=== PATIENT | female | born 1960 | race Caucasian/White ===

== ENCOUNTER 2017-02-09 18:13 | Emergency (ER) | payer OTHER ==
--- OUTSIDE RECORDS SUMMARY | 2017-02-09 18:33 | XMS REPORT | Continuity of Care Document ---
:1960 Author Organization [facility] ([facility]) Address [address] [place] [address] Phone [phone] Care Team Providers Name Role Phone Km Escudero Primary Care Provider [phone] Source Comments This disclosure is being made pursuant to the Care Everywhere program, applicable federal and state laws, and may not contain all informaitonavailable regarding this patient.[facility] ([facility]) Active Allergies and Adverse Reactions No Active Allergies Current Medications Not on file Active Problems Not on file Social History Tobacco Use Types Packs/Day Years Used Date Never Assessed Last Filed Vital Signs Vital Sign Reading Time Taken Blood Pressure - - Pulse - - Temperature - - Respiratory Rate - - Height 1.6 m (5' 2.99") 06/20/2005 8:22 AM CDT Weight 61.798 kg (136 lb 3.8 oz) 06/20/2005 8:22 AM CDT Body Mass Index 24.14 06/20/2005 8:22 AM CDT Oxygen Saturation - - Plan of Care Health Maintenance Due Date Last Done Comments HCV Screening 1960 Hepatitis B Vaccine (1 of 3 - Primary Series) 1960 Tdap Vaccine 1969 Lipid Disorder Screening 1976 MMR Vaccine 1976 Td Vaccine 1976 Cervical Cancer Screening 1988 Mammogram 1998 Colonoscopy 11/20/2008 Influenza Vaccine: Seasonal (#1) 06/04/2016 Results from Last 3 Months Not on file
[2017-02-09] MEDS ORDERED: HYDROcodone/ACETAMINOPHEN 1 EACH TABLET PO ONE ×2 (18:34→19:11)
[2017-02-09] MEDS ORDERED: KETOROLAC TROMETHAMINE 60 MG/2 ML VIAL IM ONE ×2 (18:34→18:37)
[2017-02-09] MEDS ORDERED: HYDROcodone/ACETAMINOPHEN 1 EACH TABLET ONE ×2 (18:37→19:24)
--- NOTE | 2017-02-09 19:09 | ERNOTE ---
Trauma/Assault HPI - Narrative Date of Service: 02/09/17 - General Stated Complaint: FALL DOWNSTAIRS Time Seen by Provider: 02/09/17 18:29 Source: patient, family Exam Limitations: no limitations - Immun/Allergies/Home Medications Immunizations: IMMUNIZATION HX Immunizations Up to Date No History of Influenza Vaccine No Hx Pneumococcal Vaccination Yes Allergies/Adverse Reactions: Allergies No Known Allergies Allergy (Verified 05/27/13 14:16) Home Medications: HOME MEDICATIONS Calcium Carb/Vitamin D3/Vit K1 [Calcium + D Soft Chewable Tab] 1 each PO QID 06/20 [Last Taken Unknown] Magnesium 200 mg PO DAILY 02/09/17 [Last Taken Unknown] Multivitamin [One Daily Essential] 1 each PO DAILY 02/09/17 [Last Taken Unknown] Nortriptyline HCl 10 mg PO HS 02/09/17 [Last Taken Unknown] Sulindac 200 mg PO BID 02/09/17 [Last Taken Unknown] Venlafaxine HCl [Effexor] 75 mg PO BID 02/09/17 [Last Taken Unknown] - History of Present Illness Narrative: Present to the [facility] ER today after a fall at home about 1400 hour. She was working outside, and slipped on some cellar steps. She fell down two steps, thereby twisting her right ankle and twisting his low back. Back pain is worse than the ankle pain. Location Occurred: Reports: home Pain Location: Reports: lower extremity, other - low back, right side Method of Injury: Reports: other - slipped and fell Severity: moderate Modifying Factors - (Improves): Reports: rest Modifying Factors - (Worsens): Reports: jarring, movement Loss of Consciousness: Reports: no loss of consciousness Associated Symptoms - Trauma: Reports: denies symptoms Review of Systems - Review of Systems Constitutional: Present: no symptoms reported EYE: Present: no symptoms reported ENT: Present: no symptoms reported Respiratory: Present: no symptoms reported Cardiology: Present: no symptoms reported Gastrointestinal/Abdominal: Present: no symptoms reported Genitourinary: Present: no symptoms reported Musculoskeletal: Present: See HPI Skin: Present: no symptoms reported Neurological: Present: no symptoms reported Endocrine: Present: no symptoms reported Hematologic/Lymphatic: Present: no symptoms reported Psych: Present: no symptoms reported All Other Systems: All systems neg except as marked - Patient's Past Medical History Patient History - Medical: Fibromyalgia Patient History - Cardiac/Respiratory: Sleep Apnea Patient History - Cancer: Skin Patient History - Surgical Procedures: T & A, Other Patient History - Other: None - Social History Living Situations: home Psych History: No pertinent hx Smoking Status: Current some day smoker Patient requests Smoking Cessation Consult: No Initiate information on Smoking Cessation: No Alcohol Use: none Drug Use: none - Immunizations Immunizations Up to Date: No Hx Pneumococcal Vaccination: Yes History of Influenza Vaccine: No Physical Exam - Physical Exam General Appearance: Present: wd/wn, alert, no apparent distress Eye Exam: Normal inspection: bilateral, PERRL: bilateral, EOMI: bilateral Ears, Nose, Throat: Present: normal ENT inspection Neck: Present: normal inspection, nontender Respiratory: Present: no respiratory distress, normal breath sounds Cardiovascular/Chest: Present: regular rate, rhythm, no murmur Gastrointestinal/Abdominal: Present: normal bowel sounds, nontender, nondistended, soft, no organomegaly Back Exam: Present: muscle spasm - right paralumbar mucscles, which are also quite tender. Absent: no CVA tenderness, no vertebral tenderness Extremity Exam: Present: normal except - - lateral right ankle tender. one lateral ligament plus the fibula are tender. Neurological Exam: Present: alert, oriented, normal mood/affect, no motor/ sensory deficits Skin Exam: Present: normal color, warm/dry ED Progress - Vital Signs Patient's Vital Signs:: I have reviewed the patient's vital signs. Vital Signs: Vital Signs 02/09/17 18:15 Temperature 37.2 C Pulse Rate 72 Respiratory 16 Rate Blood Pressure 142/65 O2 Sat by Pulse 97 Oximetry - X-Ray X-Ray #1 X-Ray: ankle Interpretation: Interp. by me - comminuted fx distal tip of fibula, right ankle. - Progress/Reassessment Chief Complaint: Fall Progress:: Improved Departure Clinical Impression: Right ankle sprain Qualifiers: Encounter type: initial encounter Involved ligament of ankle: unspecified ligament Qualified Code(s): S93.401A - Sprain of unspecified ligament of right ankle, initial encounter Fracture, fibula Qualifiers: Encounter type: initial encounter Fibula location: distal Fracture type: closed Fracture morphology: unspecified fracture morphology Laterality: right Qualified Code(s): S82.831A - Other fracture of upper and lower end of right fibula, initial encounter for closed fracture Low back strain Qualifiers: Encounter type: initial encounter Qualified Code(s): S39.012A - Strain of muscle, fascia and tendon of lower back, initial encounter - Departure Disposition: Home self-care Condition: Good Instructions: Ankle Sprain, Undisplaced Fibular Ankle Fracture Treated With Immobilization, Adult, Low Back Sprain With Rehab-SportsMed, RICE for Routine Care of Injuries, [id number] Additional Instructions: Followup in the office in 1-2 weeks. Referrals: Anderson Jaimes MD [Primary Care Provider] -
[2017-02-09 19:44] VITALS: BP 133/56
== END 2017-02-09 19:38 | disposition home or self-care (01) ==
LOC: ER 18:13
PROC: 2W3SX1Z Immobilization of Right Foot using Splint (ICD-10-PCS; principal; 2017-02-09)
DX: S93.401A Sprain of unspecified ligament of right ankle, initial encounter (principal); S82.831A Other fracture of upper and lower end of right fibula, initial encounter for closed fracture; S39.012A Strain of muscle, fascia and tendon of lower back, initial encounter; Z72.0 Tobacco use; Z85.828 Personal history of other malignant neoplasm of skin; W10.2XXA Fall (on)(from) incline, initial encounter; Y93.9 Activity, unspecified; Y92.007 Garden or yard of unspecified non-institutional (private) residence as the place of occurrence of the external cause; M79.7 Fibromyalgia

== ENCOUNTER 2017-03-02 21:01 | Emergency (ER) | payer OTHER ==
[2017-03-02] MEDS ORDERED: ONDANSETRON HCL/PF 2 MG/ML VIAL IV ONE (23:14)
[2017-03-02] MEDS ORDERED: TAMSULOSIN HCL 0.4 MG CAP.SR.24H PO ONE ×2 (23:14→23:19)
[2017-03-02] MEDS ORDERED: KETOROLAC TROMETHAMINE 30 MG/ML VIAL IV ONE (23:14)
[2017-03-02] MEDS ORDERED: ONDANSETRON HCL/PF 2 MG/ML VIAL ONE (23:17)
[2017-03-02] MEDS ORDERED: KETOROLAC TROMETHAMINE 30 MG/ML VIAL ONE (23:17)
--- NOTE | 2017-03-02 23:18 | ERNOTE ---
Back Pain ER HPI Date of Service: 03/02/17 Presenting Symptoms: injury/pain to back Time Seen by Provider: 03/02/17 23:04 Source: patient Exam Limitations: no limitations Immunizations: IMMUNIZATION HX Immunizations Up to Date Yes History of Influenza Vaccine No Hx Pneumococcal Vaccination Yes Allergies/Adverse Reactions: Allergies No Known Allergies Allergy (Verified 05/27/13 14:16) Home Medications: HOME MEDICATIONS Calcium Carb/Vitamin D3/Vit K1 [Calcium + D Soft Chewable Tab] 1 each PO QID 06/20 [Last Taken Unknown] Magnesium 200 mg PO DAILY 02/09/17 [Last Taken Unknown] Multivitamin [One Daily Essential] 1 each PO DAILY 02/09/17 [Last Taken Unknown] Nortriptyline HCl 10 mg PO HS 02/09/17 [Last Taken Unknown] Sulindac 200 mg PO BID 02/09/17 [Last Taken Unknown] Venlafaxine HCl [Effexor] 75 mg PO BID 02/09/17 [Last Taken Unknown] HYDROcodone/ACETAMINOPHEN [Lortab 5-325 mg Tablet] 1 each PO Q4H PRN #10 tablet 03/03/17 [Last Taken Unknown] Sulfamethoxazole/Trimethoprim [Bactrim Ds] 1 tab PO BID #20 tab 03/03/17 [Last Taken Unknown] Tamsulosin HCl [Flomax] 0.4 mg PO QDIPM #10 cap.sr.24h 03/03/17 [Last Taken Unknown] Narrative: LEFT FLANK PAIN WITH N & V. NO KNOWN INJURY. NO KNOWN FEVER. STARTED ABOUT 1700. REMINDS HER OF R. RENAL STONE SHE HAD 2 YEARS AGO. STATES V X 8. NO D. NO CONSTIPATION. SHE HAS NOT NOTED ANY CHANGE IN HER URINE. SHE HAS TAKEN NOTHING FOR THIS BUT PAIN HAS SUBSIDED SOME SINCE IT STARTED. Review of Systems - Review of Systems Constitutional: Present: See HPI EYE: Present: no symptoms reported ENT: Present: no symptoms reported Respiratory: Present: no symptoms reported Cardiology: Present: no symptoms reported Gastrointestinal/Abdominal: Present: nausea, vomiting, abdominal pain Genitourinary: Present: no symptoms reported, See HPI Musculoskeletal: Present: no symptoms reported Skin: Present: no symptoms reported Neurological: Present: no symptoms reported Endocrine: Present: no symptoms reported Hematologic/Lymphatic: Present: no symptoms reported Psych: Present: no symptoms reported All Other Systems: All systems neg except as marked - Patient's Past Medical History Patient History - Medical: Fibromyalgia, Kidney stone, Other Patient History - Cardiac/Respiratory: Sleep Apnea Patient History - Cancer: Skin Patient History - Surgical Procedures: T & A, Other Patient History - Other: None - Social History Living Situations: home Psych History: No pertinent hx Smoking Status: Current every day smoker Patient requests Smoking Cessation Consult: No Initiate information on Smoking Cessation: No Alcohol Use: none Drug Use: none - Immunizations Immunizations Up to Date: Yes Hx Pneumococcal Vaccination: Yes History of Influenza Vaccine: No Physical Exam - Physical Exam General Appearance: Present: wd/wn, alert, moderate distress Respiratory: Present: no respiratory distress, normal breath sounds, no accessory muscle use, chest nontender, lungs clear Cardiovascular/Chest: Present: regular rate, rhythm, no murmur Gastrointestinal/Abdominal: Present: normal bowel sounds, nontender, nondistended, soft, no organomegaly Back Exam: Present: normal inspection, normal range of motion, CVA tenderness (L ) - MILD Neurological Exam: Present: alert, oriented Skin Exam: Present: normal color. Absent: skin rash ED Progress - Results and Orders Patient's Lab Results:: I have reviewed the patient's lab results. Results and Orders: BLOOD WORK IS UNREMARKABLE WITH CBC AND BMP WNL. UA = 2 + BACTERIA WITH FEW RBC AND LEUKO ESTERASE. - Vital Signs Patient's Vital Signs:: I have reviewed the patient's vital signs. Vital Signs: Vital Signs 03/02/17 03/02/17 21:06 23:03 Temperature 36.4 C L 36.4 C L Pulse Rate 80 80 Respiratory 18 18 Rate Blood Pressure 144/64 137/67 O2 Sat by Pulse 100 99 Oximetry - CT/Ultrasound CT/Ultrasound Narrative: CT ABD/PEL WITHOUT CONTRAST = LEFT HYDRONEPHROSIS WITH 3.5 STONE AT DISTAL URETER WITH PERINEPHRIX STRANDING. - Progress/Reassessment Chief Complaint: Back Pain Progress:: Improved - Transfer of Care Expected Disposition: Discharge Departure Clinical Impression: Left ureteral stone UTI (urinary tract infection) Qualifiers: Urinary tract infection type: site unspecified Hematuria presence: without hematuria Qualified Code(s): N39.0 - Urinary tract infection, site not specified - Departure Disposition: Home Follow Up Needed Condition: Good Instructions: Bone and Joint Infections, Adult, Kidney Stones, [id number], Urinary Tract Infection, Adult, [id number], Urine Culture and Sensitivity Testing, Hydronephrosis Referrals: Anderson Jaimes MD [Primary Care Provider] - Prescriptions: HYDROcodone/ACETAMINOPHEN [Lortab 5-325 mg Tablet] 1 each PO Q4H PRN #10 tablet PRN Reason: Pain Sulfamethoxazole/Trimethoprim [Bactrim Ds] 1 tab PO BID #20 tab Tamsulosin HCl [Flomax] 0.4 mg PO QDIPM #10 cap.sr.24h
[2017-03-02 23:22] LABS: Hemoglobin 12.9 gm/dL (12.5-16.0); Mean Cell Volume 95.4 fl (78-100); Mean Corpuscular Hemoglobin 31.5 pg (27-31); Mean Corpuscular Hgb Conc 33.1 g/dl (32-36); Mean Platelet Volume 9.9 fl (6.0-9.5); Neutrophil % 88.2 % (42-75.0); Platelet Count 326 K/mm3 (150-450); Red Blood Count 4.09 M/mm3 (4.2-5.4); Red Cell Distribution Width 12.7 % (11.5-14.0); White Blood Count 12.4 K/mm3 (4.0-10.5)
--- OUTSIDE RECORDS SUMMARY | 2017-03-02 23:23 | XMS REPORT | Continuity of Care Document ---
:1960 Author Organization [facility] ([facility]) Address [address] [place] [address] Phone [phone] Care Team Providers Name Role Phone Km Escudero Primary Care Provider [phone] Source Comments This disclosure is being made pursuant to the Care Everywhere program, applicable federal and state laws, and may not contain all informaitonavailable regarding this patient.[facility] ([facility]) Active Allergies and Adverse Reactions No Active [...]
[2017-03-02 23:46] LABS: Urine Bilirubin Negative (NEGATIVE); Urine Blood 25 /ul (NEGATIVE); Urine Ketone 5 mg/dL (NEGATIVE); Urine Nitrite Negative (NEGATIVE); Urine Protein Negative (NEGATIVE); Urine Urobilinogen Normal (NORMAL); Urine pH 6.5 pH (5.0-7.0)
[2017-03-02 23:55] LABS: Urine Appearance Clear; Urine Bacteria 2+; Urine Color Yellow; Urine RBC 0-5 /hpf (0-5); Urine WBC 0-5 /hpf (0-5)
[2017-03-03] MEDS ORDERED: HYDROcodone/ACETAMINOPHEN 1 EACH TABLET ONE (03:37)
[2017-03-03] MEDS ORDERED: SULFAMETHOXAZOLE/TRIMETHOPRIM 1 TAB TABLET ONE (03:37)
[2017-03-03] MEDS ORDERED: SULFAMETHOXAZOLE/TRIMETHOPRIM 1 TAB TABLET PO ONE (03:39)
[2017-03-03] MEDS ORDERED: HYDROcodone/ACETAMINOPHEN 1 EACH TABLET PO ONE (03:39)
[2017-03-03 03:59] LABS: BUN/Creatinine Ratio 19.1 (9.0-21.6); Calcium * 9.9 mg/dL (7.9-10.9); Estimated Creat Clear 37.3
[2017-03-03 05:57] VITALS: BP 96/48
== END 2017-03-03 03:50 | disposition home or self-care (01) ==
LOC: ER 21:01
DX: N20.1 Calculus of ureter (principal); N39.0 Urinary tract infection, site not specified; F17.210 Nicotine dependence, cigarettes, uncomplicated; Z87.442 Personal history of urinary calculi; Z85.828 Personal history of other malignant neoplasm of skin